=== PATIENT | female | born 1990 | race Caucasian/White ===

== ENCOUNTER 2017-08-12 23:05 | Emergency (ER) | payer BC ==
[2017-08-12 23:12] VITALS: BP 144/90; PULSE 90; TEMP 98.9; BMI 24.9
--- NOTE | 2017-08-12 23:23 | PDOC ---
History of Present Illness - General Chief Complaint: Allergic Reaction Stated Complaint: SWOLLEN TONSILS Time Seen by Provider: 08/12/17 23:12 History Source: Patient Exam Limitations: No Limitations - History of Present Illness Initial Comments: 08/12/17 23:21 This is a 27-year-old female who comes in complaining of swollen tonsils. However in further discussion with patient it is clear that she is complaining of swollen lymph glands not tonsils. Patient denies any sore throat, any sensation that her throat is closing or swelling or any shortness of breath. Patient was concerned because she had a ALLERGIC reaction to a penicillin several days ago and developed a rash. Patient stop the penicillin but was concerned that she might be developing an ALLERGIC reaction affecting her throat. Patient otherwise is without complaints. PAST MEDICAL HISTORY: no significant history PAST SURGICAL HISTORY: no significant history FAMILY HISTORY: no pertinant history SOCIAL HISTORY: Pt lives with family and is employed. MEDICATIONS: reviewed ALLERGIES: As per nursing notes Review of Systems General: No fevers or chills, no weakness, no weight loss HEENT: No change in vision. No sore throat,. No ear pain, swollen lymph glands CardioVascular: No chest pain or shortness of breath Respiratory:No cough, or wheezing. Gastrointestinal: no nausea, vomitting, diarrhea or constipation, No rectal bleeding Genitourinary: No dysuria, hematuria, or frequency Musculoskeletal: No joint or muscle pain or swelling Neurologic: No headache, vertigo, dizziness or loss of consciousness Psychiatric: nor depression Skin: No rashes or easy bruising Endocrine: no increased thirst or abnormal weight change Allergic: no skin or latex allergy All other systems reviewed and normal GENERAL: The patient is awake, alert, and fully oriented, in no acute distress. HEAD: Normal with no signs of trauma. EYES: Pupils equal, round and reactive to light, extraocular movements intact, sclera anicteric, conjunctiva clear. THROAT: The tonsils and the posterior oropharynx or not enlarged there is some very mild erythema of the posterior oropharynx otherwise there is no edema of the posterior oropharynx or uvula NECK: There is 1 lymph node that is mildly enlarged on both sides of her neck otherwise there is no tenderness of the neck, EXTREMITIES: Normal range of motion, no edema. NEUROLOGICAL: Normal speech, normal gait. grossly intact PSYCH: Normal mood, normal affect. SKIN: Warm, Dry, normal turgor, no rashes, or urticaria or lesions noted. Assessment and plan: This is a 27-year-old female who came in complaining of swollen tonsils however in talking to patient it was evident that she was concerned that she may be having an ALLERGIC reaction that was affecting her throat. On exam there is no evidence of angioedema of the posterior oropharynx or throat. She did have evidence of a probable viral etiology. Patient was reassured and discharged home. Past History - Past Medical History Allergies/Adverse Reactions: Allergies Allergy/AdvReac Type Severity Reaction Status Date / Time amoxicillin trihydrate Allergy Verified 08/12/17 23:08 [From Augmentin] potassium clavulanate Allergy Verified 08/12/17 23:08 [From Augmentin] Sulfa (Sulfonamide Allergy Verified 08/12/17 23:08 Antibiotics) Home Medications: Ambulatory Orders Prednisone [Deltasone -] 10 mg PO DAILY 08/12/17 COPD: No - Suicide/Smoking/Psychosocial Hx Smoking History: Current every day smoker Have you smoked in the past 12 months: No Number of Cigarettes Smoked Daily: 10 Information on smoking cessation initiated: Yes 'Breaking Loose' booklet given: 08/12/17 Hx Alcohol Use: No Drug/Substance Use Hx: No Substance Use Type: None *Physical Exam - Vital Signs Last Vital Signs Temp Pulse Resp BP Pulse Ox 98.9 F 90 18 144/90 99 08/12/17 23:09 08/12/17 23:09 08/12/17 23:09 08/12/17 23:09 08/12/17 23:09 *DC/Admit/Observation/Transfer Diagnosis at time of Disposition: Viral syndrome - Discharge Dispostion Disposition: HOME Condition at time of disposition: Good Admit: No - Referrals - Patient Instructions Additional Instructions: Return to the emergency department immediately with ANY new, persistent or worsening symptoms. Continue any medications as previously prescribed by your physician. You should follow up with your primary doctor as soon as possible regarding today's emergency department visit. . Please make sure your doctor reviews the results of your emergency evaluation. Thank you for coming to the Emergency Department today for your care. It was a pleasure to see you today. Please note that your evaluation is INCOMPLETE until you follow-up with your doctor. - Post Discharge Activity
== END 2017-08-12 23:41 | disposition home or self-care (01) ==
LOC: FER 23:05
DX: B34.9 Viral infection, unspecified (principal); F17.210 Nicotine dependence, cigarettes, uncomplicated
CPT/HCPCS: 99281-25

== ENCOUNTER 2020-02-23 07:31 | Emergency (ER) | payer BC, OTHER ==
[2020-02-23 07:48] VITALS: BP 130/89; PULSE 89; BMI 23.3
[2020-02-23 07:52] VITALS: TEMP 98.5
--- NOTE | 2020-02-23 07:58 | PDOC ---
Post Exposure HPI - General Chief Complaint: Blood/Body Fluid Exposure SJR Stated Complaint: Blood/Body Fluid Exposure SJR Time Seen by Provider: 02/23/20 07:36 History Source: Patient Exam Limitations: No Limitations - History of Present Illness Initial Comments: 02/23/20 07:53 29 y/o female presents to the ED for fingerstick to left index finger prior to arrival. 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 Pt states in the process, she was stuck by the needle which had blood drawn through it. Pt states immediately washed the area with soap and water and came straight to the ED. Pt denies med hx and had a tdap 2 years ago. Timing: just prior to arrival Severity: mild Exposed Location: Left: Finger(s) Assessing Significant Risk PEP: Yes Blood, Yes Visibily Bloody Fluid Past History - Travel History Traveled outside of the country in the last 30 days: No Close contact w/someone who was outside of country & ill: No - Medical History Allergies/Adverse Reactions: Allergies Allergy/AdvReac Type Severity Reaction Status Date / Time amoxicillin trihydrate Allergy Verified 02/23/20 07:41 [From Augmentin] potassium clavulanate Allergy Verified 02/23/20 07:41 [From Augmentin] Sulfa (Sulfonamide Allergy Verified 02/23/20 07:41 Antibiotics) Home Medications: Ambulatory Orders Bupropion HCl [Wellbutrin Xl -] 150 mg PO ASDIR 02/23/20 COPD: No - Psycho-Social/Smoking History Patient Lives Alone: No Smoking History: Never smoked Have you smoked in the past 12 months: No Number of Cigarettes Smoked Daily: 10 Information on smoking cessation initiated: No 'Breaking Loose' booklet given: 08/12/17 - Substance Abuse Hx (Audit-C & DAST Scrn) How often the patient has a drink containing alcohol: Monthly or less Number of drinks the patient has on a typical day: 1 or 2 How often the patient has six or more drinks on one occasion: Less than monthly Score: In Men: 4 or > Positive; In Women: 3 or > Positive: 2 Screen Result (Pos requires Nsg. Audit-10AR): Negative In the last yr the pt used illegal drug/Rx for NonMed reason: No Score: Yes response is considered Positive: 0 Screen Result (Positive result requires Nsg. DAST-10): Negative Review of Systems - Review of Systems Able to Perform ROS?: Yes Is the patient limited Gibraltarian proficient: No Constitutional: No: Symptoms Reported Integumentary: Yes: Other Neurological: No: Tingling Hematologic/Lymphatic: No: Symptoms Reported *Physical Exam - Vital Signs Last Vital Signs Temp Pulse Resp BP Pulse Ox 98.5 F 89 18 130/89 100 02/23/20 07:52 02/23/20 07:42 02/23/20 07:42 02/23/20 07:42 02/23/20 07:42 - Physical Exam General Appearance: Yes: Nourished, Appropriately Dressed. No: Apparent Distress HEENT: positive: EOMI Respiratory/Chest: negative: Respiratory Distress Gastrointestinal/Abdominal: negative: Distended Extremity: positive: Normal Range of Motion Integumentary: positive: Other (noted pinhead sized puncture to tip of left 2nd digit on the palmar aspect. surrounding skin intact) Neurologic: positive: Motor Strength 5/5 (ambulatory) Medical Decision Making - Medical Decision Making 02/23/20 07:59 CC: needle stick after drawing blood from elderly combative man admitted here at [facility] Exam: noted puncture to left 2nd digit Plan: order set for exposure ordered. Pt to notify employee health, the provider for this man and obtain hx, and also ask to have him consent to exposure set labs to be drawn. The man was born in 1923 an has a very low risk for communicable diseases. Explained to patient options of PEP vs waiting for lab results. Also explained to have her labs redrawn in 3-6 months. Discharge - Discharge Information Problems reviewed: Yes Clinical Impression/Diagnosis: Needle stick injury of finger Condition: Good Disposition: HOME - Follow up/Referral - Patient Discharge Instructions Patient Printed Discharge Instructions: How to Handle Body Fluid Exposure -- Healthcare Worker Additional Instructions: Pt to notify employee health, the provider for this man and obtain medical hx, and also ask to have him consent to exposure set labs to be drawn. The man was born in 1923 an has a very low risk for communicable diseases. Explained to patient options of PEP vs waiting for lab results. Also explained to have her labs redrawn in 3-6 months. - Post Discharge Activity Work/Back to School Note: Back to Work
[2020-02-23 08:20] LABS: BASO % 1.4 % (0-2.0); EOS % 1.9 % (0-4.5); HEMATOCRIT 38.6 % (32.4-45.2); HEMOGLOBIN 13.1 GM/dL (10.7-15.3); LYMPH % 32.1 % (8-40); MCH 32.9 pg (25.7-33.7); MCHC 33.9 g/dl (32.0-36.0); MONO % 5.8 % (3.8-10.2); NEUT % 58.8 % (42.8-82.8); PLATELET COUNT 290 K/MM3 (134-434); RBC 3.98 M/mm3 (3.60-5.2); RDW 12.6 % (11.6-15.6); WHITE BLOOD COUNT 6.9 K/mm3 (4.0-10.0)
[2020-02-23 08:45] LABS: ALBUMIN 4.1 g/dl (3.4-5.0); BILIRUBIN,TOTAL 0.3 mg/dL (0.2-1); BLOOD UREA NITROGEN 13.5 mg/dL (7-18); CALCIUM 9.5 mg/dL (8.5-10.1); CREATININE 0.9 mg/dL (0.55-1.3); PHOSPHOROUS 3.1 mg/dL (2.5-4.9); POTASSIUM 4.2 mmol/L (3.5-5.1); TOT PROT 7.4 g/dl (6.4-8.2); URIC ACID 4.1 mg/dL (2.6-7.2)
== END 2020-02-23 08:16 | disposition home or self-care (01) ==
LOC: JER 07:31
DX: S61.231A Puncture wound without foreign body of left index finger without damage to nail, initial encounter (principal); W46.1XXA Contact with contaminated hypodermic needle, initial encounter
CPT/HCPCS: 36415; 80053; 82465; 82977; 83615; 84100; 84478; 84550; 85025; 86317; 86704; 86706; 86803; 87340; 87389; 99283-25

== ENCOUNTER 2020-05-03 04:41 | Emergency (ER) | payer OTHER ==
--- NOTE | 2020-05-03 04:54 | PDOC ---
History of Present Illness - General Chief Complaint: Lightheaded Stated Complaint: DIZZY Time Seen by Provider: 05/03/20 04:53 History Source: Patient, Old Records Exam Limitations: No Limitations - History of Present Illness Initial Comments: 05/03/20 04:53 Lucita Clarke is an otherwise healthy 30F with PMH anxiety presenting with dizziness. Yesterday played 2 very intense games of softball and had 2 beers, did not properly hydrate. 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 Has had this dizziness before when she has been dehydrated, went to urgent care felt better after IVF. Associated with nausea without vomiting, unable to tolerate PO intake. Denies abdominal pain, diarrhea, sick contacts, spoiled food, vision changes, or tinnitus. Gait normal, denies any falls or head trauma. No urinary sx, vaginal bl eeding/discharge. Denies , has not had any sexual activity recently. Allergy to PCN is hives and swelling. No PSH. Takes Xanax for anxiety PRN, did not take today. Past History - Medical History Allergies/Adverse Reactions: Allergies Allergy/AdvReac Type Severity Reaction Status Date / Time amoxicillin trihydrate Allergy Verified 05/03/20 04:57 [From Augmentin] potassium clavulanate Allergy Verified 05/03/20 04:57 [From Augmentin] Sulfa (Sulfonamide Allergy Verified 05/03/20 04:57 Antibiotics) Home Medications: Ambulatory Orders Bupropion HCl [Wellbutrin Xl -] 150 mg PO ASDIR 02/23/20 COPD: No - Psycho-Social/Smoking History Smoking History: Current every day smoker Have you smoked in the past 12 months: No Number of Cigarettes Smoked Daily: 10 'Breaking Loose' booklet given: 08/12/17 Review of Systems - Review of Systems Able to Perform ROS?: Yes Constitutional: No: Symptoms Reported HEENTM: No: Symptoms Reported Respiratory: No: Symptoms reported Cardiac (ROS): No: Symptoms Reported ABD/GI: Yes: Nausea, Poor Appetite, Poor Fluid Intake. No: Vomiting : No: Symptoms Reported Musculoskeletal: No: Symptoms Reported Integumentary: No: Symptoms Reported Neurological: Yes: Dizziness. No: Ataxia Endocrine: No: Symptoms Reported Hematologic/Lymphatic: No: Symptoms Reported All Other Systems: Reviewed and Negative *Physical Exam - Physical Exam General Appearance: Yes: Nourished, Appropriately Dressed, Other (resting comfortably in bed in NAD). No: Apparent Distress HEENT: positive: EOMI, LEROY, Normal Voice, Symmetrical, Pharynx Normal, Hearing Grossly Normal. negative: Pharyngeal Erythema, Tonsillar Exudate, Tonsillar Erythema Neck: positive: Trachea midline, Normal Thyroid, Supple. negative: Tender, Rig id, Decreased range of motion, Lymphadenopathy (R), Lymphadenopathy (L) Respiratory/Chest: positive: Lungs Clear, Normal Breath Sounds. negative: Chest Tender, Respiratory Distress, Accessory Muscle Use, Labored Respiration, Crackles, Rales, Rhonchi, Stridor, Wheezing Cardiovascular: positive: Regular Rhythm, Tachycardia. negative: Murmur Gastrointestinal/Abdominal: positive: Normal Bowel Sounds, Flat, Soft. negative: Tender, Organomegaly, Pulsatile Mass, Guarding, Rebound Musculoskeletal: positive: Normal Inspection, Decreased Range of Motion. negative: CVA Tenderness, Vertebral Tenderness Extremity: positive: Normal Capillary Refill, Normal Inspection, Normal Range of Motion, Pelvis Stable. negative: Tender, Pedal Edema, Swelling, Calf Tenderness Integumentary: positive: Normal Color, Dry, Warm. 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 negative: Facial Droop, Numbness, Sensory Deficit ED Treatment Course - LABORATORY CBC & Chemistry Diagram: 05/03/20 05:18 05/03/20 05:18 Medical Decision Making - Medical Decision Making 05/03/20 05:59 Patient reports playing a lot of softball yesterday in hot weather without enough fluid intake, history of dizziness similar to prior dizziness from dehydration, mildly tachycardic. No neuro deficits. No other symptoms. Presentation is consistent with dehydration vs. BPPV, less likely to be more severe pathology such as labyrinthitis given history. Getting CBC/CMP/preg with 1L IVF and Zofran for nausea. Will re-evaluate after getting meds, PO challenge and likely discharge home with PMD follow-up. 05/03/20 06:02 Labs unremarkable for any abnormalities. Not . Receiving IVF at this time. 05/03/20 06:10 IVF 50% complete, dizziness resolved. Says she has developed a ERVIN. Giving 600mg ibuprofen. 05/03/20 06:49 IVF complete, still mild ERVIN but not dizzy, exam unremarkable. Repeat HR 91, tachycardia resolved. Stable for d/c home with instructions to drink fluids with electrolytes. Discharge - Discharge Information Problems reviewed: Yes Clinical Impression/Diagnosis: Dizziness Condition: Improved Disposition: HOME - Admission No - Follow up/Referral Referrals: Neean Pollock [Primary Care Provider] - - Patient Discharge Instructions Patient Printed Discharge Instructions: DI for Dehydration -- Adult Additional Instructions: Today you were evaluated for dizziness. Your labs are all normal. You felt better after some IV fluids and Motrin. Please remember to stay hydrated, drink lots of Gatorade or other sports drinks to keep your fluids up. Take Motrin every 8 hours as needed for headaches. Avoid any physical exertion or alcohol today. Please follow-up with your regular doctor as needed. If you experience worsening dizziness, nausea, vomiting, become unable to walk, or have any other new or concerning symptoms, please return to the emergency room. - Post Discharge Activity Work/Back to School Note: Back to Work Vital Signs - Vital Signs Pulse Rate: 91
--- NOTE | 2020-05-03 04:56 | PDOC ---
Attending Attestation - Resident Resident Name: Josh Mercado - ED Attending Attestation I have performed the following: I have examined & evaluated the patient, The case was reviewed & discussed with the resident, I agree w/resident's findings & plan - HPI HPI: 05/03/20 07:02 see resdient exam - Physicial Exam PE: 05/03/20 07:02 see resident exam - Medical Decision Making 05/03/20 07:03 30 you female with dizziness after playing softball in the heat Patient admits to light alcohol use yesterday as well and states that she has had this issue before with dehydration Patient improved after IV fluids and Reglan Will DC home with recommendations for increased fluid intake 05/03/20 19:44 Discharge - Discharge Information Problems reviewed: Yes Clinical Impression/Diagnosis: Dizziness Condition: Improved Disposition: HOME - Follow up/Referral Referrals: Neena Pollock [Primary Care Provider] - - Patient Discharge Instructions Patient Printed Discharge Instructions: DI for Dehydration -- Adult Additional Instructions: Today you were evaluated for dizziness. Your labs are all normal. You felt better after some IV fluids and Motrin. Please remember to stay hydrated, drink lots of Gatorade or other sports drinks to keep your fluids up. Take Motrin every 8 hours as needed for headaches. Avoid any physical exertion or alcohol today. Please follow-up with your regular doctor as needed. If you experience worsening dizziness, nausea, vomiting, become unable to walk, or have any other new or concerning symptoms, please return to the emergency room. - Post Discharge Activity Work/Back to School Note: Back to Work
[2020-05-03 04:57] VITALS: TEMP 98.6; BMI 24.5
[2020-05-03] MEDS ORDERED: SODIUM CHLORIDE 0.9% 500 ML INFUS.BAG IV ONE (05:04)
[2020-05-03] MEDS ORDERED: ONDANSETRON 4 MG/2 ML VIAL IVPUSH ONE (05:06)
[2020-05-03 05:26] LABS: BASO % 0.7 % (0-2.0); HEMATOCRIT 38.6 % (32.4-45.2); HEMOGLOBIN 13.1 GM/dL (10.7-15.3); LYMPH % 30.7 % (8-40); MCH 32.1 pg (25.7-33.7); MEAN CELL VOLUME 94.6 fl (80-96); MEAN PLT VOLUME 8.3 fl (7.5-11.1); MONO % 6.6 % (3.8-10.2); PLATELET COUNT 283 K/MM3 (134-434); RBC 4.07 M/mm3 (3.60-5.2); RDW 12.6 % (11.6-15.6); WHITE BLOOD COUNT 8.3 K/mm3 (4.0-10.0)
[2020-05-03 05:47] LABS: ALBUMIN 4.3 g/dl (3.4-5.0); BILIRUBIN,TOTAL 0.5 mg/dL (0.2-1); BLOOD UREA NITROGEN 8.6 mg/dL (7-18); CALCIUM 10.1 mg/dL (8.5-10.1); CREATININE 0.8 mg/dL (0.55-1.3); POTASSIUM 4.3 mmol/L (3.5-5.1)
[2020-05-03] MEDS ORDERED: IBUPROFEN 600 MG TABLET (FP) PO ONE ×2 (06:22→06:36)
[2020-05-03 07:04] VITALS: BP 118/76
[2020-05-03 09:20] VITALS: PULSE 91
== END 2020-05-03 07:04 | disposition home or self-care (01) ==
LOC: JER 04:41
PROC: 3E033GC Introduction of Other Therapeutic Substance into Peripheral Vein, Percutaneous Approach (ICD-10-PCS; principal; 2020-05-03)
DX: R42 Dizziness and giddiness (principal)
CPT/HCPCS: 36415; 80053; 84703; 85025; 99284-25